=== PATIENT | female | born 1945 | race Caucasian/White ===

== ENCOUNTER 2020-03-04 15:58 | Emergency (ER) | payer MEDICARE, OTHER ==
[2020-03-04] MEDS ORDERED: Sodium Chloride 0.9% 10 ML Syringe FLUSH PRN (16:08)
--- NOTE | 2020-03-04 16:33 | EDM.PDOC ---
ED HPI GENERAL MEDICAL PROBLEM - General Chief Complaint: Chest Pain Stated Complaint: CHEST PAIN Time Seen by Provider: 03/04/20 16:08 Source of Information: Reports: Patient, RN Notes Reviewed History Limitations: Reports: No Limitations - History of Present Illness INITIAL COMMENTS - FREE TEXT/NARRATIVE: Patient is a 75-year-old female who presents to the ED for the evaluation of her sudden onset chest pressure. Patient notes she was wrapping presents in her basement, when she had sudden onset midsternal chest pressure. She said that this was so bad that it took her breath away, this did last roughly 1 to 2 minutes, but she states it felt like it was forever. She has never felt this pressure or pain before ever. She notes that she called herself, took a baby aspirin and her blood pressure which was normal. She denies any fevers or chills, cough or shortness of breath prior to the episode. Patient's primary care provider is Dr. Cortez, patient has cholesterol issues but takes no other regular medications. Patient denies any sort of med allergies. - Related Data Allergies Allergy/AdvReac Type Severity Reaction Status Date / Time cephalexin [From Keflex] AdvReac Diarrhea Verified 03/04/20 16:12 Home Meds: Home Meds Cholecalciferol (Vitamin D3) [Vitamin D3] 5,000 unit PO DAILY 02/06/19 [History] Cyanocobalamin (Vitamin B12) [Vitamin B12] 1,000 mcg SQ Q30D 02/06/19 [History] Ubidecarenone [Coq-10] 100 mg PO DAILY 02/06/19 [History] atorvaSTATin Calcium [Lipitor] 20 mg PO DAILY 02/06/19 [History] nitrofurantoin macrocrystaL [Nitrofurantoin] 100 mg PO BID 02/06/19 [History] Acetaminophen/oxyCODONE [Percocet 325-5 MG] 1 - 2 tab PO Q4H PRN #60 tablet 02/08/19 [Rx] Cyclobenzaprine [Flexeril] 10 mg PO BID PRN #20 tablet 02/08/19 [Rx] Docusate Sodium [Colace] 100 mg PO BID cap 02/08/19 [Rx] Famotidine [Pepcid] 20 mg PO Q12H tablet 02/08/19 [Rx] Magnesium Hydroxide [Milk of Magnesia] 30 ml PO BID PRN cup 02/08/19 [Rx] Rivaroxaban [Xarelto] 10 mg PO DAILY #30 tablet 02/08/19 [Rx] Sennosides [Senna] 8.6 mg PO BID PRN tablet 02/08/19 [Rx] bisacodyL [Dulcolax] 5 mg PO DAILY PRN tablet 02/08/19 [Rx] Past Medical History HEENT History: Reports: Impaired Vision, Other (See Below) Other HEENT History: cleft lip repair, wears glasses Cardiovascular History: Reports: High Cholesterol Respiratory History: Reports: SOB Genitourinary History: Reports: UTI, Recurrent, Other (See Below) Other Genitourinary History: bladder repair, UTI at this time [employer] History: Reports: Musculoskeletal History: Reports: Osteoarthritis - Infectious Disease History Infectious Disease History: Reports: Chicken Pox, Measles, Mumps - Past Surgical History GI Surgical History: Reports: Appendectomy, Colonoscopy Female Surgical History: Reports: Hysterectomy Musculoskeletal Surgical History: Reports: Knee Replacement, Other (See Below) Other Musculoskeletal Surgeries/Procedures:: bilateral bunionectomy, left hammertoe correction Social & Family History - Tobacco Use Tobacco Use Status *Q: Never Tobacco User Second Hand Smoke Exposure: No - Caffeine Use Caffeine Use: Reports: Coffee - Recreational Drug Use Recreational Drug Use: No ED ROS GENERAL - Review of Systems Review Of Systems: Comprehensive ROS is negative, except as noted in HPI. ED EXAM, GENERAL - Physical Exam Exam: See Below Exam Limited By: No Limitations General Appearance: Alert, WD/WN, No Apparent Distress Eye Exam: Bilateral Eye: EOMI Respiratory/Chest: No Respiratory Distress, Lungs Clear, Normal Breath Sounds, No Accessory Muscle Use, Chest Non-Tender Cardiovascular: Normal Peripheral Pulses, Regular Rate, Rhythm, No Murmur Peripheral Pulses: 2+: Radial (L), Radial (R) Extremities: Normal Inspection, Normal Capillary Refill Neurological: Alert, Oriented, Normal Cognition, No Motor/Sensory Deficits Psychiatric: Normal Affect, Normal Mood Skin Exam: Warm, Dry, Intact, Normal Color, No Rash #1 Interpretation EKG Date: 03/04/20 Time: 16:06 Rhythm: NSR Rate (Beats/Min): 60 [place]: Normal P-Wave: Present QRS: Normal ST-T: Normal QT: Normal Comparison: NA - No Prior EKG EKG Interpretation Comments: No obvious ischemia or acute ST changes noted, reviewed by myself and Dr. Springer. Course - Vital Signs Last Recorded V/S: Last Vital Signs Temp 97.4 F 03/04/20 16:00 Pulse 66 03/04/20 16:00 Resp 18 03/04/20 16:00 BP 192/66 H 03/04/20 16:00 Pulse Ox 100 03/04/20 16:00 - Orders/Labs/Meds Orders: Active Orders 24 hr Category Date Time Status EKG Documentation Completion [RC] STAT Care 03/04/20 16:08 Ordered Peripheral IV Care [RC] . DIRECTED Care 03/04/20 16:08 Ordered Chest 2V [CR] Stat Exams 03/04/20 16:08 Ordered PRO B-TYPE NATRIUR PEPT,BNPPRO [CHEM] Stat Lab 03/04/20 16:08 Ordered Sodium Chloride 0.9% [Saline Flush] Med 03/04/20 16:08 Ordered 10 ml FLUSH ASDIRECTED PRN Peripheral IV Insertion Adult [OM.PC] Stat Oth 03/04/20 16:08 Ordered Medication Orders Sodium Chloride (Saline Flush) 10 ml FLUSH ASDIRECTED PRN PRN Reason: Keep Vein Open Last Admin: 03/04/20 17:04 Dose: 10 ml Documented by: LARRY Labs: Laboratory Tests 03/04/20 03/04/20 03/04/20 Range/Units 16:16 16:16 16:16 WBC 5.37 (3.98-10.04) K/mm3 RBC 5.11 (3.98-5.22) M/mm3 Hgb 14.5 D (11.2-15.7) gm/dl Hct 44.5 (34.1-44.9) % MCV 87.1 (79.4-94.8) fl MCH 28.4 (25.6-32.2) pg MCHC 32.6 (32.2-35.5) g/dl RDW Std Deviation 46.3 (36.4-46.3) fL Plt Count 240 (182-369) K/mm3 MPV 10.0 (9.4-12.3) fl Neut % (Auto) 53.1 (34.0-71.1) % Lymph % (Auto) 32.2 (19.3-51.7) % [place] % (Auto) 11.7 (4.7-12.5) % Eos % (Auto) 2.4 (0.7-5.8) Baso % (Auto) 0.4 (0.1-1.2) % Neut # (Auto) 2.85 (1.56-6.13) K/mm3 Lymph # (Auto) 1.73 (1.18-3.74) K/mm3 [place] # (Auto) 0.63 H (0.24-0.36) K/mm3 Eos # (Auto) 0.13 (0.04-0.36) K/mm3 Baso # (Auto) 0.02 (0.01-0.08) K/mm3 PT 10.7 (9.7-12.0) SECONDS INR 1.00 APTT 26.3 (21.7-31.4) SECONDS Sodium 139 (136-145) mEq/L Potassium 3.9 (3.5-5.1) mEq/L Chloride 102 (98-107) mEq/L Carbon Dioxide 26 (21-32) mEq/L Anion Gap 14.9 (5-15) BUN 17 (7-18) mg/dL Creatinine 0.8 (0.55-1.02) mg/dL Est Cr Clr Drug Dosing 47.26 mL/min Estimated GFR (MDRD) > 60 (>60) mL/min BUN/Creatinine Ratio 21.3 H (14-18) Glucose 100 (83-115) mg/dL Calcium 9.3 (8.5-10.1) mg/dL Magnesium 1.9 (1.8-2.4) mg/dl Total Bilirubin 0.5 (0.2-1.0) mg/dL AST 19 (15-37) U/L ALT 27 (14-59) U/L Alkaline Phosphatase 81 (46-116) U/L Troponin I < 0.017 (0.00-0.056) ng/mL Total Protein 7.5 (6.4-8.2) g/dl Albumin 4.1 (3.4-5.0) g/dl Globulin 3.4 gm/dL Albumin/Globulin Ratio 1.2 (1-2) Meds: Medications Generic Name Dose Route Start Last Admin Trade Name Freq PRN Reason Stop Dose Admin Sodium Chloride 10 ml 03/04/20 16:08 03/04/20 17:04 Saline Flush FLUSH 10 ml ASDIRECTED PRN Administration Keep Vein Open - Re-Assessments/Exams Free Text/Narrative Re-Assessment/Exam: 03/04/20 16:31 Patient presents to the ED for her sudden onset chest pressure. We will get labs, EKG, chest x-ray for cardiac work-up at this time. 03/04/20 17:09 Patient's labs are unremarkable. Troponin is undetectably low. We will get the patient home with general recommendations. Departure - Departure Time of Disposition: 17:09 Disposition: Home, Self-Care 01 Condition: Good Clinical Impression: Sensation of chest pressure Instructions: Nonspecific Chest Pain, Adult, [id number] Referrals: Yifan Cortez MD [Primary Care Provider] - Forms: ED Department Discharge Additional Instructions: You were evaluated in the ER today for your sudden onset chest pressure. Evaluation done at today's visit, was all unremarkable, your EKG was also good, there is no sign of any acute heart attack at [facility]'s visit. Your chest x-ray also was within normal limits, with no remarkable findings. It is reassuring everything is good, as this is showing you are not having a heart attack at [facility]'s visit. Unsure of what would have caused the sudden onset chest pressure, he is monitor your symptoms at home, if the seem to worsen do not hesitate to return to the ER for reevaluation otherwise I would recommend close follow-up with your regular care provider for further cardiac testing if he deems this warranted. This would be a test such as echocardiogram, or cardiac stress test. Please return to the ER at any time if symptoms change or worsen. Sepsis Event Note (ED) - Evaluation Sepsis Screening Result: No Definite Risk - Focused Exam Vital Signs: Vital Signs Temp Pulse Resp BP Pulse Ox 03/04/20 16:00 97.4 F 66 18 192/66 H 100 - My Orders Last 24 Hours: My Active Orders 03/04/20 16:08 EKG Documentation Completion [RC] STAT Peripheral IV Care [RC] . DIRECTED Chest 2V [CR] Stat PRO B-TYPE NATRIUR PEPT,BNPPRO [CHEM] Stat Sodium Chloride 0.9% [Saline Flush] 10 ml FLUSH ASDIRECTED PRN Peripheral IV Insertion Adult [OM.PC] Stat - Assessment/Plan Last 24 Hours: My Active Orders 03/04/20 16:08 EKG Documentation Completion [RC] STAT Peripheral IV Care [RC] . DIRECTED Chest 2V [CR] Stat PRO B-TYPE NATRIUR PEPT,BNPPRO [CHEM] Stat Sodium Chloride 0.9% [Saline Flush] 10 ml FLUSH ASDIRECTED PRN Peripheral IV Insertion Adult [OM.PC] Stat
--- NOTE | 2020-03-04 17:14 | CR ---
Chest: 2 views of the chest were obtained. Comparison: No previous study. Heart size is normal. Mild tortuous thoracic aorta is seen. Lungs appear clear with no acute parenchymal change. Scattered degenerative change with disc space narrowing and endplate spurring is seen within the spine. Mild scoliosis is also noted within the spine. Impression: 1. Findings as noted above. 2. Nothing acute is appreciated on 2 view chest x-ray. Diagnostic code #2
== END 2020-03-04 17:20 | disposition home or self-care (01) ==
LOC: JD.ED 15:58
DX: R07.89 Other chest pain (principal); E78.00 Pure hypercholesterolemia, unspecified; M19.90 Unspecified osteoarthritis, unspecified site; Z88.1 Allergy status to other antibiotic agents; Z79.82 Long term (current) use of aspirin; Z79.899 Other long term (current) drug therapy; Z79.01 Long term (current) use of anticoagulants
CPT/HCPCS: 36415; 71046; 71046-26; 80053; 83735; 83880; 84484; 85025; 85610; 85730; 93005; 93010; 99283; 99285-25

== ENCOUNTER 2023-12-05 06:15 | Day surgery (SDC) | payer MEDICARE, OTHER ==
[2023-12-05] MEDS: Lactated Ringers 1,000 ML IV SCH (06:25)
[2023-12-05] MEDS: oxyCODONE ER 10 MG TAB.ER PO ONE (06:35)
[2023-12-05] MEDS: Pregabalin 25 MG Cap PO ONE (06:35)
[2023-12-05] MEDS: Acetaminophen 325 MG Tab PO ONE (06:35)
[2023-12-05] MEDS ORDERED: Propofol 200 MG/20 ML SDV ONE ×4 (06:36→06:37)
[2023-12-05] MEDS ORDERED: Ropivacaine 0.5% 5 MG/ML 30 ML SDV ONE (06:37)
[2023-12-05] MEDS ORDERED: Dexamethasone 4 MG/ML 5 ML MDV ONE (06:39)
[2023-12-05] MEDS ORDERED: Ondansetron 4 MG/2 ML SDV ONE (06:39)
[2023-12-05] MEDS ORDERED: Sodium Chloride 0.9% 10 ML Syringe FLUSH PRN (07:00)
[2023-12-05] MEDS ORDERED: Sodium Chloride 0.9% 10 ML Syringe FLUSH SCH (07:00)
[2023-12-05] MEDS ORDERED: ceFAZolin 2 GM Vial ONE (07:07)
[2023-12-05] MEDS ORDERED: Phenylephrine 1% 10 MG/ML SDV ONE (07:11)
[2023-12-05] MEDS ORDERED: ePHEDrine 50 MG/ML SDV ONE (07:28)
[2023-12-05] MEDS ORDERED: Lactated Ringers 1,000 ML IV ONE (08:00)
[2023-12-05] MEDS ORDERED: fentaNYL 100 MCG/2 ML SDV IVPUSH PRN (08:00)
[2023-12-05] MEDS ORDERED: dexmedeTOMIDine HCl 200 MCG/2 ML SDV ONE (08:02)
[2023-12-05] MEDS: EPINEPHRINE PRN (08:03)
[2023-12-05] MEDS: MORPHINE PRN (08:03)
[2023-12-05] MEDS: [UNRECOGNIZED DRUG - OTHER] PRN (08:03)
[2023-12-05] MEDS: KETOROLAC PRN (08:03)
[2023-12-05] MEDS: SODIUM CHLORIDE 0.9% PRN (08:03)
[2023-12-05] MEDS: Vancomycin 1 GM SDV ONE (08:05)
[2023-12-05] MEDS: Tranexamic Acid 1,000 MG/10 ML Vial ONE (08:05)
[2023-12-05] MEDS ORDERED: fentaNYL 100 MCG/2 ML SDV ONE (08:09)
[2023-12-05] MEDS: oxyCODONE 5 MG Tab PO PRN (11:23)
== END 2023-12-05 11:45 | disposition home or self-care (01) ==
LOC: JD.SDS 06:15
PROVIDERS: ATTEND Orthopaedic Surgery
DX: M17.12 Unilateral primary osteoarthritis, left knee (principal); E78.00 Pure hypercholesterolemia, unspecified; Z79.899 Other long term (current) drug therapy; Z88.8 Allergy status to other drugs, medicaments and biological substances
CPT/HCPCS: 0055T; 27447; 64447; 73560; 97161; A9270; C1713; C1776; J0171; J0690; J0697; J1100; J1885; J2270; J2371; J2405; J2704; J2795; J3010; J3370; J7120; 01402; 99100; J3490